=== PATIENT | male | born 1945 | race Two or more races ===

== ENCOUNTER → 2017-05-29 | Outpatient (CLI) | payer OTHER | END | disposition home or self-care (01) | LOC: RAD 18:13 | DX: M19.072 Primary osteoarthritis, left ankle and foot (principal) | CPT/HCPCS: 73630 ==

== ENCOUNTER 2017-09-14 11:09 | Emergency (ER) | payer OTHER ==
[~2017-09-14] VITALS: Ht 167.6 cm; Wt 61.0 kg
[2017-09-14 13:21] VITALS: BP 156/65
== END 2017-09-14 13:22 | disposition home or self-care (01) ==
LOC: TRA 11:09 → EME 11:09 → TRA 13:22
DX: S80.02XA Contusion of left knee, initial encounter (principal); V43.52XA Car driver injured in collision with other type car in traffic accident, initial encounter; Y92.410 Unspecified street and highway as the place of occurrence of the external cause; I10 Essential (primary) hypertension; Z88.0 Allergy status to penicillin
CPT/HCPCS: 73564; 99281; 99284